=== PATIENT | female | born 1975 | race Hispanic/Latino ===

== ENCOUNTER 2017-11-21 21:08 | Emergency (ER) | payer SELFPAY | END 2017-11-21 21:34 | disposition short-term general hospital (02) | LOC: ER 21:08 | DX: R10.9 Unspecified abdominal pain (principal) ==

== ENCOUNTER 2023-01-05 22:03 | Emergency (ER) | payer OTHER ==
[~2023-01-05] VITALS: Ht 154.9 cm; Wt 81.6 kg
[2023-01-05] MEDS ORDERED: FAMOTIDINE 20 MG TAB PO STA (22:18)
[2023-01-05 23:27] VITALS: BP 112/71
== END 2023-01-05 23:38 | disposition home or self-care (01) ==
LOC: ER 22:23
DX: R07.89 Other chest pain (principal); R10.13 Epigastric pain; R11.0 Nausea; Z20.822 Contact with and (suspected) exposure to COVID-19
CPT/HCPCS: 93005; 99283; U0002